=== PATIENT | female | born 1950 | race Caucasian/White ===

== ENCOUNTER → 2017-02-10 | Outpatient (CLI) | payer MEDICARE, OTHER | END | disposition home or self-care (01) | LOC: CFH 12:38 | PROVIDERS: ATTEND Family Medicine | DX: Z12.31 Encounter for screening mammogram for malignant neoplasm of breast (principal) | CPT/HCPCS: 77063; G0202 ==

== ENCOUNTER → 2018-03-01 | Outpatient (CLI) | payer MEDICARE, OTHER | END | disposition home or self-care (01) | LOC: CFH 10:27 | PROVIDERS: ATTEND Family Medicine | DX: Z12.31 Encounter for screening mammogram for malignant neoplasm of breast (principal); Z13.820 Encounter for screening for osteoporosis; M81.0 Age-related osteoporosis without current pathological fracture; M85.80 Other specified disorders of bone density and structure, unspecified site | CPT/HCPCS: 77063; 77080; 77067 ==

== ENCOUNTER 2018-06-18 13:49 | Emergency (ER) | payer MEDICARE, OTHER ==
[~2018-06-18] VITALS: Ht 149.9 cm; Wt 59.0 kg
[2018-06-18 13:55] VITALS: BP 168/91
== END 2018-06-18 16:58 | disposition home or self-care (01) ==
LOC: ED 16:45
DX: S93.492A Sprain of other ligament of left ankle, initial encounter (principal); S92.212A Displaced fracture of cuboid bone of left foot, initial encounter for closed fracture; X50.1XXA Overexertion from prolonged static or awkward postures, initial encounter; Y93.89 Activity, other specified; Y99.8 Other external cause status; Y92.009 Unspecified place in unspecified non-institutional (private) residence as the place of occurrence of the external cause
CPT/HCPCS: 29515; 99284

== ENCOUNTER 2019-09-03 20:39 | Emergency (ER) | payer MEDICARE, OTHER ==
[~2019-09-03] VITALS: Ht 149.9 cm; Wt 62.7 kg
[2019-09-03 20:41] VITALS: BP 168/90
--- NOTE | 2019-09-03 21:01 | NUR ---
PT HERE WITH C/O GLF. PT STATES SHE FELL AND BOTH WRISTS HURT, RIGHT KNEE PAIN, + SWELLING AND ABRASION, AND BRUISE TO TOP OF R FOOT.
--- NOTE | 2019-09-03 21:06 | NUR ---
REPORT GIVEN TO EDGAR VALENZUELA. CARE TRANSFERRED.
[2019-09-03] MEDS ORDERED: HYDROcodone/APAP 5/325 TABLET PO ONE (21:30)
[2019-09-03] MEDS ORDERED: HYDROcodone/APAP 5/325 TABLET ONE (21:32)
--- NOTE | 2019-09-03 21:34 | NUR ---
MEDS ADMIN PER NOV. XRAY AT BEDSIDE.
== END 2019-09-03 22:23 | disposition home or self-care (01) ==
LOC: ED 22:17
DX: S80.01XA Contusion of right knee, initial encounter (principal); M79.642 Pain in left hand; M79.641 Pain in right hand; W01.0XXA Fall on same level from slipping, tripping and stumbling without subsequent striking against object, initial encounter; Y93.89 Activity, other specified; Y92.89 Other specified places as the place of occurrence of the external cause; Y99.8 Other external cause status
CPT/HCPCS: 99283